=== PATIENT | female | born 1995 | race Caucasian/White ===

== ENCOUNTER 2018-05-26 13:35 | Emergency (ER) | payer OTHER ==
[~2018-05-26] VITALS: Ht 152.4 cm; Wt 51.3 kg
[2018-05-26 13:42] VITALS: BP_SYST 117
[2018-05-26] MEDS ORDERED: KETOROLAC TROMETHAMINE 60 MG/2 ML VIAL IM ONE (15:15)
[2018-05-26 15:34] VITALS: BP_SYST 122
== END 2018-05-26 15:34 | disposition home or self-care (01) ==
LOC: SED 13:35
DX: G43.909 Migraine, unspecified, not intractable, without status migrainosus (principal); R03.0 Elevated blood-pressure reading, without diagnosis of hypertension; Z91.041 Radiographic dye allergy status
CPT/HCPCS: 96372; 99283; J1885